=== PATIENT | male | born 1990 | race Caucasian/White ===

== ENCOUNTER 2016-07-25 20:51 | Emergency (ER) | payer OTHER ==
[2016-07-25 21:08] VITALS: BP 158/88
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
== END 2016-07-26 00:06 ==
LOC: ERH 20:51
DX: T23.152A Burn of first degree of left palm, initial encounter (principal); X10.2XXA Contact with fats and cooking oils, initial encounter